=== PATIENT | female | born 1945 | race African-American/Black ===

== ENCOUNTER 2017-07-13 13:23 | Inpatient (IN) | payer MEDICARE, OTHER ==
[2017-07-13] MEDS ORDERED: Dextrose 5% in Water 1,000 ML IV PRN (18:06)
[2017-07-13] MEDS ORDERED: Dextrose 50% Abboject 50 ML SYRINGE SLOW IVP PRN (18:06)
[2017-07-13] MEDS ORDERED: Acetaminophen 500 MG TAB PO PRN (18:06)
[2017-07-13] MEDS: HYDROcodone/Acetaminophen 7.5/325 mg Tablet PO PRN (21:12)
[2017-07-13] MEDS: TROSPIUM 20 MG TABLET PO SCH (21:12)
[2017-07-13] MEDS: Potassium Chloride 20 MEQ TAB PO SCH (21:12)
[2017-07-13] MEDS: Gabapentin 300 MG CAP PO SCH (21:12)
[2017-07-13] MEDS: MISOPROSTOL PO SCH (21:15)
[2017-07-13] MEDS: DICLOFENAC SODIUM PO SCH (21:15)
--- NOTE | 2017-07-13 22:32 | HP ---
DATE OF ADMISSION: 07/14/2017 CHIEF COMPLAINT: Status post left total knee replacement for physical therapy. BRIEF HISTORY: This is a very pleasant 71-year-old -[place] female who underwent elective le ft total knee replacement. She has been transferred here for therapy. Her postoperative period was uneventful except for some high blood sugars, which resolved after she resumed back on her home medic ations. Currently, she states her pain is well controlled. She denies any fever or chills. She den ies any chest pain or shortness of breath. No family at bedside. PAST MEDICAL HISTORY: 1. Diabetes mellitus, type 2. 2. Hypertension. 3. Peripheral vascular disease. 4. Overactive bladder. 5. Cardiac arrhythmia. 6. Peripheral neuropathy and degenerative joint disease. 7. Dyslipidemia, not on statin due to intolerance. PAST SURGICAL HISTORY: 1. Hysterectomy. 2. section. 3. Peripheral vascular stent placement to left leg. ALLERGIES: STATINS. FAMILY HISTORY: Positive for coronary artery disease in her mother and diabetes in both her father a nd mother. PSYCHOSOCIAL HISTORY: She does smoke. She denies any alcohol abuse. She denies any recreational dr ug use. She is fairly active and independent. She really does not have anyone at home to help her. REVIEW OF SYSTEMS: Cardiovascular system: Denies any chest pain, shortness of breath, palpitations, paroxysmal nocturnal dyspnea, orthopnea, pedal edema. Respiratory System: Denies any chronic cough, expectoration, or pleuritic-type chest pain. Gastrointestinal system: Denies any nausea, vomiting, diarrhea, constipation, hematemesis, melena, hematochezia. Genitourinary system: Denies any freque ncy, urgency, dysuria, or hematuria. She does have some overactive bladder symptoms controlled with VESIcare. Central Nervous System: No focal numbness, weakness, or fainting spells. Musculoskeletal System: Arthritis pain mainly in her knees. HEENT: Denies any difficulty with speech, vision, hea ring, or swallowing. Skin: Denies any rash. PHYSICAL EXAMINATION: GENERAL: Very pleasant 71-year-old overweight -[place] female who is resting comfortably in no apparent distress. She responds appropriately to questions. She is alert, awake, and oriented x3 . VITAL SIGNS: She is afebrile, heart rate 67, respirations 20, oxygen saturation 98% on room air, blo od pressure 143/62. HEENT: Normocephalic, atraumatic. Pupils equal and reactive to light and accommodation. NECK: No JVD, thyromegaly, cervical adenopathy, throat exudates, or carotid bruits. CARDIOVASCULAR SYSTEM: S1, S2 plus rate and rhythm regular. RESPIRATORY SYSTEM: Normal vesicular breath sounds heard in all lung east. ABDOMEN: Soft, nontender, bowel sounds heard in all quadrants. EXTREMITIES: Without cyanosis or clubbing. Trace edema left leg. Peripheral pulses are palpable bu t decreased on the right. Left knee incision with dressing. No neurovascular compromise. CENTRAL NERVOUS SYSTEM: Grossly nonfocal. LABORATORY VALUES: Pending. Blood sugar is 197. IMPRESSION: 1. Degenerative joint disease, status post elective left total knee replacement. 2. Peripheral vascular disease, status post percutaneous transluminal coronary angioplasty, stent to left leg. 3. Diabetes mellitus, type 2. 4. Hypertension. 5. Dyslipidemia. 6. Cardiac arrhythmia. 7. Overactive bladder. PLAN: 1. Continue current medications. 2. An-1800 calorie Heart healthy ADA diet. 3. Accu-Cheks with sliding scale coverage. 4. DVT prophylaxis with PlexiPulses. 5. Stress ulcer prophylaxis. She is on Protonix. 6. Incision care. 7. PT, OT evaluate and treat. 8. Monitor heart rate and rhythm. 9. Routine laboratory values in the morning to check BMP, CBC. 10. Discussed with patient in detail. All questions answered. 11. No family at bedside. 12. Estimated length of stay 7-10 days.
[2017-07-14 05:19] LABS: #Basophils 0.1 thou/uL (0.0-0.2); #Eosinphils 0.2 thou/uL (0.0-0.7); #Lymphocytes 1.8 thou/uL (1.20-3.40); #Monocytes 0.8 thou/uL (0.11-0.59); #Neutrophils 5.7 thou/uL (1.40-6.50); %Basophils 0.7 % (0.0-1.0); %Lymphocytes 20.8 % (21.0-51.0); %Monocytes 9.6 % (0.0-10.0); %Neutrophils 66.9 % (42.0-75.0); Hemoglobin 8.1 g/dL (12.0-16.0); Mean Corpuscular HGB CONC 32.4 g/dL (32.0-36.0); Mean Corpuscular Hemoglobin 28.5 pg (27.0-31.0); Mean Corpuscular Volume 87.9 fl (81.0-99.0); Mean Platelet Volume 8.7 fL (7.4-10.4); Platelet Count 155 thou/uL (130-400); RBC Distribution Width 12.9 % (11.5-14.5); Red Blood Cell (RBC) Count 2.84 mill/uL (4.20-5.40); White Blood Cell (WBC) Count 8.5 thou/uL (4.8-10.8)
[2017-07-14 05:36] LABS: Anion Gap 11 mmol/L (10-20); BUN (Urea Nitrogen) 19 mg/dL (9.8-20.1); Calc. Creatinine Clearance 106 mL/min (70-130); Calcium 8.6 mg/dL (7.8-10.44); Carbon Dioxide 27 mmol/L (23-31); Chloride 108 mmol/L (98-107); Estimated GFR-MDRD 88; Glucose 165 mg/dL (83-110); Potassium 4.4 mmol/L (3.5-5.1); Sodium 142 mmol/L (136-145)
[2017-07-14] MEDS: Multivitamin W/ Minerals 1 TAB PO SCH (08:36)
[2017-07-14] MEDS: Furosemide 80 MG TAB PO SCH (08:36)
[2017-07-14] MEDS: Digoxin 0.125 MG TAB PO SCH (08:36)
[2017-07-14] MEDS: Fish Oil 1,000 MG CAP PO SCH (08:36)
[2017-07-14] MEDS: Aspirin 81 mg Enteric Coated Tablet PO SCH (08:36)
[2017-07-14] MEDS: TROSPIUM 20 MG TABLET PO SCH ×2 (08:36→21:22)
[2017-07-14] MEDS: Clopidogrel Bisulfate 75 MG TAB PO SCH (08:36)
[2017-07-14] MEDS: Gabapentin 300 MG CAP PO SCH ×2 (08:36→21:22)
[2017-07-14] MEDS: Potassium Chloride 20 MEQ TAB PO SCH ×2 (08:37→21:22)
[2017-07-14] MEDS: HYDROcodone/Acetaminophen 7.5/325 mg Tablet PO PRN ×2 (08:40→21:23)
[2017-07-14] MEDS: MISOPROSTOL PO SCH ×2 (10:21→21:21)
[2017-07-14] MEDS: (Empagliflozin [Jardiance] 10 MG) PO SCH (10:21)
[2017-07-14] MEDS: DICLOFENAC SODIUM PO SCH ×2 (10:21→21:21)
[2017-07-14] MEDS: HumaLOG 300 UNITS/3 ML VIAL SC PRN ×2 (12:10→16:28)
[2017-07-14] MEDS ORDERED: Valsartan 80 MG TAB PO SCH (22:30)
[2017-07-14] MEDS: Valsartan 80 MG TAB PO SCH (22:30)
[2017-07-15] MEDS: HumaLOG 300 UNITS/3 ML VIAL SC PRN ×3 (07:04→17:17)
[2017-07-15] MEDS: (Empagliflozin [Jardiance] 10 MG) PO SCH (09:28)
[2017-07-15] MEDS: DICLOFENAC SODIUM PO SCH ×2 (09:28→21:19)
[2017-07-15] MEDS: MISOPROSTOL PO SCH ×2 (09:28→21:19)
[2017-07-15] MEDS: TROSPIUM 20 MG TABLET PO SCH ×2 (09:29→21:20)
[2017-07-15] MEDS: Valsartan 80 MG TAB PO SCH (09:29)
[2017-07-15] MEDS: Fish Oil 1,000 MG CAP PO SCH (09:29)
[2017-07-15] MEDS: Digoxin 0.125 MG TAB PO SCH (09:29)
[2017-07-15] MEDS: Potassium Chloride 20 MEQ TAB PO SCH ×2 (09:29→21:20)
[2017-07-15] MEDS: Gabapentin 300 MG CAP PO SCH ×2 (09:30→21:20)
[2017-07-15] MEDS: HYDROcodone/Acetaminophen 7.5/325 mg Tablet PO PRN ×2 (09:30→18:46)
[2017-07-15] MEDS: Multivitamin W/ Minerals 1 TAB PO SCH (09:30)
[2017-07-15] MEDS: Aspirin 81 mg Enteric Coated Tablet PO SCH (09:30)
[2017-07-15] MEDS: Clopidogrel Bisulfate 75 MG TAB PO SCH (09:30)
[2017-07-15] MEDS: Furosemide 80 MG TAB PO SCH (09:30)
[2017-07-15] MEDS: Bisacodyl 5 MG TAB PO SCH (21:20)
--- NOTE | 2017-07-15 23:02 | PRG ---
DATE OF SERVICE: 07/15/2017 HISTORY OF PRESENT ILLNESS: Ms. Sandoval is a very pleasant, well-developed, well-nourished 71-year- old black female that had an elective total left knee done. This was done by Dr. Silvestre Bergeron. P ostoperatively, she had a few sugars out of control, but she was transferred to [facility] for physical therapy and occupational therapy to manage her diabetes. SUBJECTIVE: The patient states she had a good day today. She has no complaints, but she is not sure why her sugars are a little bit elevated. PHYSICAL EXAMINATION: VITAL SIGNS: Reveal blood pressure this morning 119/51, pulse 59-69, respirations 16-20, O2 sat 96%- 98% on room air, T-max 98.1. GENERAL: This is a well-developed, well-nourished, slightly obese black female in no apparent distre ss at this time. HEENT: Reveals normocephalic, nontraumatic cranium. Pupils are equally round and reactive. Extraoc ular muscles are intact. Nose and throat are slightly dry. NECK: Supple, without mass, nodes, or bruits. LUNGS: Chest is clear to auscultation. No rales, no rhonchi, no wheezes are heard. No cough was no mark. HEART: Reveals a regular rate and rhythm without murmurs, gallops, or rubs. ABDOMEN: Obese, soft, nontender, without organomegaly. Normal bowel sounds are noted in all 4 quadr ants. No rebound or guarding is noted. EXAM: Deferred. EXTREMITIES: Reveal trace edema, left leg. Bandage over the left knee is not oozing or draining. NEUROLOGIC: The patient is grossly nonfocal. LABORATORY DATA: Labs yesterday morning reveal white count 8500 with hemoglobin 8.1, hematocrit 24.9 , platelet count 155,000. Chemistries, sodium is 142, potassium 4.4, chloride 108, carbon dioxide 27 with a creatinine 0.78. GFR is 88. Fasting blood sugar this morning was 79, before lunch 227, before supper 256, before bedtime 187. IMPRESSION: 1. Total left knee, status post elective replacement. 2. Degenerative joint disease. 3. Peripheral vascular disease. 4. Post-PTCA stent to the left leg. 5. Diabetes type 2, slightly elevated. 6. Hypertension. 7. Hyperlipidemia. 8. Cardiac arrhythmia. 9. Overactive bladder. 10. Generalized weakness. PLAN: 1. Continue to encourage the patient to stay on a healthy heart, 1800-calorie ADA diet. 2. Accu-Cheks a.c. and at bedtime. 3. Deep venous thrombosis prophylaxis with PlexiPulses. 4. Stress ulcer prophylaxis. 5. Decubitus precautions. 6. Physical therapy and occupational therapy. 7. Monitor the patient's rate. 8. Continue physical therapy and occupational therapy.
[2017-07-16] MEDS: HumaLOG 300 UNITS/3 ML VIAL SC PRN ×3 (06:39→20:45)
[2017-07-16] MEDS: Multivitamin W/ Minerals 1 TAB PO SCH (08:52)
[2017-07-16] MEDS: Bisacodyl 5 MG TAB PO SCH ×2 (08:52→20:46)
[2017-07-16] MEDS: Clopidogrel Bisulfate 75 MG TAB PO SCH (08:52)
[2017-07-16] MEDS: TROSPIUM 20 MG TABLET PO SCH ×2 (08:52→20:46)
[2017-07-16] MEDS: Valsartan 80 MG TAB PO SCH (08:52)
[2017-07-16] MEDS: Fish Oil 1,000 MG CAP PO SCH (08:52)
[2017-07-16] MEDS: Furosemide 80 MG TAB PO SCH (08:53)
[2017-07-16] MEDS: Gabapentin 300 MG CAP PO SCH ×2 (08:53→20:46)
[2017-07-16] MEDS: Potassium Chloride 20 MEQ TAB PO SCH ×2 (08:53→20:46)
[2017-07-16] MEDS: Aspirin 81 mg Enteric Coated Tablet PO SCH (08:53)
[2017-07-16] MEDS: Digoxin 0.125 MG TAB PO SCH (08:53)
[2017-07-16] MEDS: DICLOFENAC SODIUM PO SCH ×2 (08:58→20:47)
[2017-07-16] MEDS: MISOPROSTOL PO SCH ×2 (08:58→20:47)
[2017-07-16] MEDS: (Empagliflozin [Jardiance] 10 MG) PO SCH (08:58)
[2017-07-16] MEDS: HYDROcodone/Acetaminophen 7.5/325 mg Tablet PO PRN ×2 (09:23→16:20)
[2017-07-16 18:44] VITALS: BMI 34.4
--- NOTE | 2017-07-16 21:08 | PRG ---
DATE OF SERVICE: 07/16/2017 HISTORY OF PRESENT ILLNESS: Ms. Sandvoal is a very pleasant 71-year-old black female that has an tasha ctive total knee done by Dr. Silvestre Bergeron. Postoperatively, she had her sugars a little bit out o f control and eventually she was transferred to [facility] for physical therapy, occu pational therapy in the management of her diabetes. SUBJECTIVE: The patient states she had a fairly good day and had lots of visitors since it is Mother 's Day. She is worried about her sugars being 180s and up to 267. We removed her from this mild sli ding scale to a moderate sliding scale. At this time, we will see how that does with her sugars. OBJECTIVE: VITAL SIGNS: This morning reveal blood pressure 132/61, pulse 64-68, respirations 16-20, O2 sat 97-9 8% on room air, T-max 98.0. GENERAL: This is a well-developed, well-nourished, slightly obese black female in no apparent distre ss at this time. HEENT: Reveals normocephalic, nontraumatic cranium. Pupils equal, round, and reactive. Extraocular movements intact. Nose and throat are slightly dry. NECK: Supple, without mass, nodes or bruits. CHEST: Clear to auscultation. No rales, rhonchi, wheezes or cough is heard. CARDIOVASCULAR: Reveals a regular rate and rhythm without murmurs, gallops or rubs. ABDOMEN: Obese, soft, nontender, without organomegaly, normal bowel sounds are noted in all 4 quadra nts. No rebound or guarding is noted. : Deferred. EXTREMITIES: Revealed trace edema in the left leg, bandage over left knee is not oozing, is nice and dry. NEUROLOGIC: The patient is nonfocal. LABORATORY DATA: Sugar this morning reveals fasting 184, before lunch 267, before supper 205. Sugars yesterday, fasting was 179, before lunch 227, before supper 256, before bedtime 187. I have increased her sliding scale insulin from a mild sliding scale to a moderate sliding scale. IMPRESSION: 1. Total left knee status post elective replacement. 2. Degenerative joint disease. 3. Diabetes type 2 with slightly elevated sugars. 4. Peripheral vascular disease. 5. Status post PTCA stent to the left leg. 6. Hypertension. 7. Hyperlipidemia. 8. History of cardiac arrhythmia. 9. Overactive bladder. 10. Generalized weakness. PLAN: 1. Increase the patient's sliding scale from mild to moderate. 2. Encourage the patient to continue to stay on a healthy heart, 1800 calorie ADA diet. 3. Accu-Cheks a.c. and at bedtime. 4. DVT prophylaxis with PlexiPulses. 5. Stress ulcer prophylaxis. 6. Decubitus precautions. 7. Continue physical therapy and occupational therapy.
[2017-07-17] MEDS: HYDROcodone/Acetaminophen 7.5/325 mg Tablet PO PRN ×2 (05:53→17:27)
[2017-07-17] MEDS: (Empagliflozin [Jardiance] 10 MG) PO SCH (08:13)
[2017-07-17] MEDS: Multivitamin W/ Minerals 1 TAB PO SCH (08:14)
[2017-07-17] MEDS: Potassium Chloride 20 MEQ TAB PO SCH ×2 (08:15→21:19)
[2017-07-17] MEDS: Clopidogrel Bisulfate 75 MG TAB PO SCH (08:15)
[2017-07-17] MEDS: Gabapentin 300 MG CAP PO SCH ×2 (08:16→21:19)
[2017-07-17] MEDS: Digoxin 0.125 MG TAB PO SCH (08:16)
[2017-07-17] MEDS: Furosemide 80 MG TAB PO SCH (08:17)
[2017-07-17] MEDS: Aspirin 81 mg Enteric Coated Tablet PO SCH (08:17)
[2017-07-17] MEDS: Valsartan 80 MG TAB PO SCH ×2 (08:18→08:20)
[2017-07-17] MEDS: Fish Oil 1,000 MG CAP PO SCH (08:18)
[2017-07-17] MEDS: DICLOFENAC SODIUM PO SCH ×2 (08:20→21:18)
[2017-07-17] MEDS: MISOPROSTOL PO SCH ×2 (08:20→21:18)
[2017-07-17] MEDS: Bisacodyl 5 MG TAB PO SCH ×2 (08:21→21:18)
[2017-07-17] MEDS: TROSPIUM 20 MG TABLET PO SCH ×2 (09:37→21:18)
[2017-07-17] MEDS: HumaLOG 300 UNITS/3 ML VIAL SC PRN ×3 (11:39→21:21)
[2017-07-17] MEDS ORDERED: Bisacodyl 10 MG SUPP PR PRN (13:17)
--- NOTE | 2017-07-17 14:33 | PRG ---
DATE OF SERVICE: 07/17/2017 SUBJECTIVE: Ms. Sandoval is doing well except for constipation and she is concerned about her blood sugar. She is currently just taking Jardiance. She apparently has been refusing some of her sliding scale. I advised her that I will get her back on her metformin and if necessary can increase the Ja rdiance to 25 mg. I also advised her that I will get her on some Dulcolax suppository and milk of ma gnesia as needed. OBJECTIVE: VITAL SIGNS: She is afebrile, heart rate 63, respirations 16, oxygen saturation 96% on room air, blo od pressure 119/54. CARDIOVASCULAR: S1, S2 plus. RESPIRATORY: Normal vesicular breath sounds. ABDOMEN: Soft, nontender, bowel sounds heard in all quadrants. EXTREMITIES: Without cyanosis or clubbing. Left knee incision with dressing. LABORATORY VALUES: Blood sugars have been 330, 205, 196, 179, 227, 256, 187, 184, 267 and 198. IMPRESSION: 1. Status post left total knee replacement. 2. Diabetes mellitus type 2, not well controlled. 3. Hypertension. 4. Peripheral vascular disease. 5. Overactive bladder. 6. Dyslipidemia. 7. Peripheral neuropathy. PLAN: 1. Add metformin 500 mg p.o. b.i.d. 2. Milk of magnesia 30 mL p.o. daily as needed. 3. Dulcolax suppository b.i.d. p.r.n. 4. Continue 1800 calorie heart healthy ADA diet. 5. Accu-Cheks with surgical coverage. 6. Deep venous thrombosis and stress ulcer prophylaxis. 7. Incision care. 8. Routine laboratory values, check glycohemoglobin. 9. Discussed with patient in detail and all questions answered.
[2017-07-17] MEDS: Milk Of Magnesia 30 ML UDCUP PO PRN (16:28)
[2017-07-17] MEDS: metFORMIN 500 MG TAB PO SCH (16:35)
[2017-07-18] MEDS: HYDROcodone/Acetaminophen 7.5/325 mg Tablet PO PRN ×3 (03:45→21:08)
[2017-07-18 05:21] LABS: #Basophils 0.1 thou/uL (0.0-0.2); #Eosinphils 0.2 thou/uL (0.0-0.7); #Lymphocytes 1.9 thou/uL (1.20-3.40); #Monocytes 0.9 thou/uL (0.11-0.59); #Neutrophils 4.1 thou/uL (1.40-6.50); %Basophils 1.3 % (0.0-1.0); %Lymphocytes 25.9 % (21.0-51.0); %Monocytes 12.6 % (0.0-10.0); %Neutrophils 57.2 % (42.0-75.0); Hemoglobin 8.4 g/dL (12.0-16.0); Mean Corpuscular HGB CONC 31.7 g/dL (32.0-36.0); Mean Corpuscular Hemoglobin 28.1 pg (27.0-31.0); Mean Corpuscular Volume 88.6 fl (81.0-99.0); Mean Platelet Volume 7.9 fL (7.4-10.4); Platelet Count 262 thou/uL (130-400); RBC Distribution Width 13.5 % (11.5-14.5); Red Blood Cell (RBC) Count 2.97 mill/uL (4.20-5.40); White Blood Cell (WBC) Count 7.2 thou/uL (4.8-10.8)
[2017-07-18 05:38] LABS: Anion Gap 11 mmol/L (10-20); BUN (Urea Nitrogen) 15 mg/dL (9.8-20.1); Calc. Creatinine Clearance 106 mL/min (70-130); Calcium 8.7 mg/dL (7.8-10.44); Carbon Dioxide 27 mmol/L (23-31); Chloride 106 mmol/L (98-107); Estimated GFR-MDRD 81; Glucose 172 mg/dL (83-110); Potassium 4.4 mmol/L (3.5-5.1); Sodium 140 mmol/L (136-145)
[2017-07-18] MEDS: HumaLOG 300 UNITS/3 ML VIAL SC PRN ×2 (06:18→12:25)
[2017-07-18] MEDS: Aspirin 81 mg Enteric Coated Tablet PO SCH (08:55)
[2017-07-18] MEDS: Fish Oil 1,000 MG CAP PO SCH (08:57)
[2017-07-18] MEDS: Potassium Chloride 20 MEQ TAB PO SCH ×2 (08:57→21:08)
[2017-07-18] MEDS: Furosemide 80 MG TAB PO SCH (08:58)
[2017-07-18] MEDS: Multivitamin W/ Minerals 1 TAB PO SCH (08:59)
[2017-07-18] MEDS: Clopidogrel Bisulfate 75 MG TAB PO SCH (08:59)
[2017-07-18] MEDS: TROSPIUM 20 MG TABLET PO SCH ×2 (09:00→21:08)
[2017-07-18] MEDS: Digoxin 0.125 MG TAB PO SCH (09:02)
[2017-07-18] MEDS: (Empagliflozin [Jardiance] 10 MG) PO SCH (09:04)
[2017-07-18] MEDS: DICLOFENAC SODIUM PO SCH ×2 (09:04→21:07)
[2017-07-18] MEDS: MISOPROSTOL PO SCH ×2 (09:04→21:07)
[2017-07-18] MEDS: Gabapentin 300 MG CAP PO SCH ×2 (09:06→21:10)
[2017-07-18] MEDS: Bisacodyl 5 MG TAB PO SCH ×2 (09:08→21:10)
[2017-07-18] MEDS: metFORMIN 500 MG TAB PO SCH (09:09)
[2017-07-18] MEDS: Valsartan 80 MG TAB PO SCH (09:57)
[2017-07-18 11:48] LABS: Hemoglobin A1c 7.5 % (4.0-6.0)
--- NOTE | 2017-07-18 13:56 | PRG ---
DATE OF SERVICE: 07/18/2017 SUBJECTIVE: Ms. Sandoval is doing well. Denies any complaints, concerned about her blood sugar, but she did not want to take her metformin. Her blood sugars are mostly in the high 100s, occasionally in the low 200s. She apparently was on Actos in the past and that was discontinued due to leg swelli ng. She was on metformin about a year ago and at that time she had some renal insufficiency, so that was discontinued. I advised her that currently her renal functions are normal. She states that she would like to try glyburide, which is what Dr. Cruz was supposed to start her on. I had a phone call from Dr. Cruz and when I called him, I had to leave a voicemail. The plan is to stop the m etformin and start her on glyburide 2.5 mg with her evening meal. She will continue to take in the J ardiance with her morning meal. She understands the rationale behind it. OBJECTIVE: VITAL SIGNS: She is afebrile, heart rate 61, respirations 16, oxygen saturation 99% on room air, and blood pressure 116/59. CARDIOVASCULAR: S1 and S2 plus. RESPIRATORY: Normal vesicular breath sounds. ABDOMEN: Soft, nontender, bowel sounds heard in all quadrants. EXTREMITIES: Without cyanosis or clubbing. Left knee incision with dressing. LABORATORY VALUES: White count is 7.2, H&H is 8.4 and 26.3. Sodium 140, potassium 4.4, BUN and crea tinine is 15 and 0.84. Blood sugars are 172, 212, and 197. Her glycohemoglobin is 7.5. IMPRESSION: 1. Degenerative joint disease status post left total knee replacement. 2. Diabetes mellitus type 2. 3. Hypertension. 4. Peripheral vascular disease. 5. Dyslipidemia. 6. Overactive bladder. PLAN: 1. Discontinue metformin, per patient request and start her on glyburide 2.5 mg with her evening karel l. 2. An 1800 calorie Heart-healthy ADA diet. 3. Continue to monitor blood sugars. 4. DVT and stress ulcer prophylaxis. 5. Decubitus precautions. 6. Incision care. 7. Routine laboratory values. 8. Physical therapy. 9. Discussed with patient in detail. All questions answered. 10. No family at bedside.
[2017-07-18] MEDS: Glimepiride 2 MG TAB PO SCH (16:43)
[2017-07-18] MEDS ORDERED: glyBURIDE 2.5 MG TAB PO SCH (17:00)
[2017-07-19] MEDS: Bisacodyl 5 MG TAB PO SCH ×2 (09:29→21:32)
[2017-07-19] MEDS: Valsartan 80 MG TAB PO SCH (09:29)
[2017-07-19] MEDS: Digoxin 0.125 MG TAB PO SCH (09:30)
[2017-07-19] MEDS: Fish Oil 1,000 MG CAP PO SCH (09:30)
[2017-07-19] MEDS: Potassium Chloride 20 MEQ TAB PO SCH ×2 (09:30→21:32)
[2017-07-19] MEDS: Multivitamin W/ Minerals 1 TAB PO SCH (09:30)
[2017-07-19] MEDS: Aspirin 81 mg Enteric Coated Tablet PO SCH (09:31)
[2017-07-19] MEDS: Gabapentin 300 MG CAP PO SCH ×2 (09:31→21:32)
[2017-07-19] MEDS: Clopidogrel Bisulfate 75 MG TAB PO SCH (09:32)
[2017-07-19] MEDS: Furosemide 80 MG TAB PO SCH (09:32)
[2017-07-19] MEDS: TROSPIUM 20 MG TABLET PO SCH ×2 (09:33→21:32)
[2017-07-19] MEDS: (Empagliflozin [Jardiance] 10 MG) PO SCH (09:36)
[2017-07-19] MEDS: MISOPROSTOL PO SCH (09:36)
[2017-07-19] MEDS: DICLOFENAC SODIUM PO SCH (09:36)
[2017-07-19] MEDS: HumaLOG 300 UNITS/3 ML VIAL SC PRN (13:07)
[2017-07-19] MEDS: HYDROcodone/Acetaminophen 7.5/325 mg Tablet PO PRN (13:56)
--- NOTE | 2017-07-19 13:57 | PRG ---
DATE OF SERVICE: 07/19/2017 SUBJECTIVE: Ms. Sandoval is doing well. Denies any complaints, ambulating in the hallways with the help of a walker and therapy, has a knee brace on. Blood sugars are mostly in the 100s with the jonn tion of glimepiride 2 mg yesterday. We will continue to monitor it for a day or two before increasin g the dose. No family at bedside. OBJECTIVE: VITAL SIGNS: She is afebrile, heart rate 65, respirations 18, oxygen saturation 96% on room air, blo od pressure 134/65. CARDIOVASCULAR: S1, S2 plus. RESPIRATORY: Normal vesicular breath sounds. ABDOMEN: Soft, nontender, bowel sounds heard in all quadrants. EXTREMITIES: Without cyanosis or clubbing. Left knee incision with dressing. LABORATORY VALUES: Blood sugars are 197, 168, 181, 154, and 235. IMPRESSION: 1. Diabetes mellitus type 2, improving controlled. 2. Hypertension. 3. Degenerative joint disease. 4. Dyslipidemia. 5. Peripheral vascular disease. 6. Overactive bladder. PLAN: 1. Continue current medications. 2. Monitor blood sugars. 3. 1800 calorie Heart healthy ADA diet. 4. Incision care. 5. Physical therapy. 6. DVT and stress ulcer prophylaxis. 7. Discussed with patient in detail. All questions answered.
[2017-07-19] MEDS: Glimepiride 2 MG TAB PO SCH (18:12)
[2017-07-19] MEDS: Misoprostol 100 MCG TAB PO SCH (21:33)
[2017-07-19] MEDS: DICLOFENAC 75 MG PO SCH (21:46)
[2017-07-20] MEDS: Aspirin 81 mg Enteric Coated Tablet PO SCH (08:33)
[2017-07-20] MEDS: TROSPIUM 20 MG TABLET PO SCH ×2 (08:33→20:16)
[2017-07-20] MEDS: Digoxin 0.125 MG TAB PO SCH (08:34)
[2017-07-20] MEDS: Multivitamin W/ Minerals 1 TAB PO SCH (08:34)
[2017-07-20] MEDS: Fish Oil 1,000 MG CAP PO SCH (08:34)
[2017-07-20] MEDS: Potassium Chloride 20 MEQ TAB PO SCH ×2 (08:34→20:16)
[2017-07-20] MEDS: Clopidogrel Bisulfate 75 MG TAB PO SCH (08:34)
[2017-07-20] MEDS: Gabapentin 300 MG CAP PO SCH ×2 (08:34→20:16)
[2017-07-20] MEDS: Valsartan 80 MG TAB PO SCH (08:35)
[2017-07-20] MEDS: Bisacodyl 5 MG TAB PO SCH ×2 (08:35→20:13)
[2017-07-20] MEDS: Furosemide 80 MG TAB PO SCH (08:36)
[2017-07-20] MEDS: (Empagliflozin [Jardiance] 10 MG) PO SCH (08:36)
[2017-07-20] MEDS: Misoprostol 100 MCG TAB PO SCH ×3 (09:38→18:11)
[2017-07-20] MEDS: DICLOFENAC 75 MG PO SCH ×2 (09:38→09:42)
[2017-07-20] MEDS: HYDROcodone/Acetaminophen 7.5/325 mg Tablet PO PRN (13:23)
--- NOTE | 2017-07-20 14:36 | PRG ---
DATE OF SERVICE: 07/20/2017 SUBJECTIVE: Ms. Sandoval is doing well. Denies any complaints. Tolerating her therapy. Blood suga rs continuing to remain in the high 100s. She is agreeable to increase the glimepiride to 4 mg. Dis cussed with therapy and no concerns. OBJECTIVE: VITAL SIGNS: She is afebrile, heart rate is 62, respirations 19, oxygen saturation 95% on room air. CARDIOVASCULAR: S1, S2 plus. RESPIRATORY: Clear breath sounds. ABDOMEN: Soft, nontender. Bowel sounds heard in all quadrants. EXTREMITIES: Without cyanosis or clubbing. She is ambulating with the help of a knee immobilizer wi th a knee brace. IMPRESSION: 1. Status post left total knee replacement. 2. Diabetes mellitus type 2, improving control. 3. Hypertension. 4. Dyslipidemia. 5. Peripheral vascular disease. PLAN: 1. Increase glimepiride to 4 mg every night with dinner. 2. Physical therapy. 3. Nutritional support. 4. Incision care. 5. 1800-calorie heart healthy ADA diet. 6. DVT and stress ulcer prophylaxis. 7. Decubitus precautions.
[2017-07-20] MEDS: Glimepiride 2 MG TAB PO SCH (16:44)
[2017-07-20] MEDS: HumaLOG 300 UNITS/3 ML VIAL SC PRN (16:45)
[2017-07-21] MEDS: HYDROcodone/Acetaminophen 7.5/325 mg Tablet PO PRN ×2 (08:39→12:59)
[2017-07-21] MEDS: TROSPIUM 20 MG TABLET PO SCH ×2 (08:40→20:34)
[2017-07-21] MEDS: Valsartan 80 MG TAB PO SCH (08:40)
[2017-07-21] MEDS: EMPAGLIFLOZIN 10 MG PO SCH (08:40)
[2017-07-21] MEDS: Digoxin 0.125 MG TAB PO SCH (08:41)
[2017-07-21] MEDS: Fish Oil 1,000 MG CAP PO SCH (08:41)
[2017-07-21] MEDS: Clopidogrel Bisulfate 75 MG TAB PO SCH (08:41)
[2017-07-21] MEDS: Potassium Chloride 20 MEQ TAB PO SCH ×2 (08:41→20:35)
[2017-07-21] MEDS: Multivitamin W/ Minerals 1 TAB PO SCH (08:41)
[2017-07-21] MEDS: Bisacodyl 5 MG TAB PO SCH ×2 (08:41→20:33)
[2017-07-21] MEDS: Gabapentin 300 MG CAP PO SCH ×2 (08:41→20:35)
[2017-07-21] MEDS: Furosemide 80 MG TAB PO SCH (08:41)
[2017-07-21] MEDS: Misoprostol 100 MCG TAB PO SCH ×2 (08:42→18:21)
[2017-07-21] MEDS: Aspirin 81 mg Enteric Coated Tablet PO SCH (08:42)
[2017-07-21] MEDS: DICLOFENAC 75 MG PO SCH ×2 (08:43→18:21)
[2017-07-21] MEDS: HumaLOG 300 UNITS/3 ML VIAL SC PRN (11:39)
[2017-07-21] MEDS: Glimepiride 2 MG TAB PO SCH (17:46)
[2017-07-22] MEDS: TROSPIUM 20 MG TABLET PO SCH ×2 (09:09→20:55)
[2017-07-22] MEDS: Valsartan 80 MG TAB PO SCH (09:09)
[2017-07-22] MEDS: Potassium Chloride 20 MEQ TAB PO SCH ×2 (09:09→20:55)
[2017-07-22] MEDS: Misoprostol 100 MCG TAB PO SCH ×2 (09:09→18:00)
[2017-07-22] MEDS: Fish Oil 1,000 MG CAP PO SCH (09:09)
[2017-07-22] MEDS: Furosemide 80 MG TAB PO SCH (09:09)
[2017-07-22] MEDS: Gabapentin 300 MG CAP PO SCH ×2 (09:10→20:56)
[2017-07-22] MEDS: Digoxin 0.125 MG TAB PO SCH (09:10)
[2017-07-22] MEDS: Aspirin 81 mg Enteric Coated Tablet PO SCH (09:10)
[2017-07-22] MEDS: Bisacodyl 5 MG TAB PO SCH ×2 (09:10→20:54)
[2017-07-22] MEDS: Clopidogrel Bisulfate 75 MG TAB PO SCH (09:10)
[2017-07-22] MEDS: Multivitamin W/ Minerals 1 TAB PO SCH (09:10)
[2017-07-22] MEDS: EMPAGLIFLOZIN 10 MG PO SCH (09:11)
[2017-07-22] MEDS: DICLOFENAC 75 MG PO SCH ×2 (09:12→18:13)
[2017-07-22] MEDS: HYDROcodone/Acetaminophen 7.5/325 mg Tablet PO PRN ×2 (11:29→18:03)
[2017-07-22] MEDS: Glimepiride 2 MG TAB PO SCH (17:59)
--- NOTE | 2017-07-22 20:19 | PRG ---
DATE OF SERVICE: 07/22/2017 SUBJECTIVE: The patient lying in bed, feels well, status post left total knee with ability to walk, but still not able to flex her knee secondary to tendon injury in addition to the total knee replacem ent, having no chest pain or shortness of breath and good blood pressure control. OBJECTIVE: VITAL SIGNS: Accu-Cheks show range from 119 from 116-178. Vital signs show blood pressure 123/58, t emperature 98, pulse 61, and respirations 20. LUNGS: Clear. CARDIAC: Shows regular rhythm. ABDOMEN: Soft and nontender. EXTREMITIES: Left knee is healing well with ability to flex 45 degrees and extend 180 degrees. No s welling, warmth, or tenderness. ASSESSMENT: 1. Resolving left total knee with follow up with orthopedic surgeon 2 days. 2. Type 2 diabetes with improving control. 3. Hypertension, controlled to goal. 4. Peripheral vascular disease, stable. PLAN: 1. Continue glimepiride 4 mg at night. 2. Continue PT, OT. 3. Continue ADA diet 4. Continue DVT and stress ulcer prophylaxis.
[2017-07-23] MEDS: HYDROcodone/Acetaminophen 7.5/325 mg Tablet PO PRN ×2 (00:08→08:56)
[2017-07-23] MEDS: TROSPIUM 20 MG TABLET PO SCH ×2 (08:45→21:06)
[2017-07-23] MEDS: Clopidogrel Bisulfate 75 MG TAB PO SCH (08:45)
[2017-07-23] MEDS: Misoprostol 100 MCG TAB PO SCH ×2 (08:45→18:07)
[2017-07-23] MEDS: Furosemide 80 MG TAB PO SCH (08:45)
[2017-07-23] MEDS: Valsartan 80 MG TAB PO SCH (08:45)
[2017-07-23] MEDS: Digoxin 0.125 MG TAB PO SCH (08:46)
[2017-07-23] MEDS: Multivitamin W/ Minerals 1 TAB PO SCH (08:46)
[2017-07-23] MEDS: Aspirin 81 mg Enteric Coated Tablet PO SCH (08:46)
[2017-07-23] MEDS: Gabapentin 300 MG CAP PO SCH ×2 (08:46→21:06)
[2017-07-23] MEDS: Potassium Chloride 20 MEQ TAB PO SCH ×2 (08:46→21:06)
[2017-07-23] MEDS: DICLOFENAC 75 MG PO SCH ×2 (08:48→18:19)
[2017-07-23] MEDS: EMPAGLIFLOZIN 10 MG PO SCH (08:49)
[2017-07-23] MEDS: Fish Oil 1,000 MG CAP PO SCH (10:27)
[2017-07-23] MEDS: Bisacodyl 5 MG TAB PO SCH ×2 (10:27→21:06)
--- NOTE | 2017-07-23 16:43 | PRG ---
DATE OF SERVICE: 07/23/2017 SUBJECTIVE: Patient complains of increased pain in her left calf and knee and popliteal area and now has been up and about today. She is not having any pre-swelling or erythema or warmth, fever or chi lls or shortness of breath. OBJECTIVE: VITAL SIGNS: Shows blood pressure is 149/64, temperature is 97, pulse 56, respirations 20. Accu-Felipa ks stable 132-180. LUNGS: Clear. CARDIAC: Shows regular rhythm. ABDOMEN: Soft, nontender. EXTREMITIES: Left knee shows healing anterior knee replacement incision with no erythema or warmth. ASSESSMENT: 1. Resolving left total knee with some mild increased pain today and will see orthopedic surgeon simnoe orrow. 2. Type 2 diabetes with fair control. 3. Hypertension, controlled to goal. 4. Peripheral vascular disease, stable. PLAN: Continue glimepiride 4 mg at night. Follow up with orthopedic surgeon tomorrow. Continue PT, OT and continue ADA diet. Continue stress ulcer and DVT prophylaxis.
[2017-07-23] MEDS: Glimepiride 2 MG TAB PO SCH (18:06)
[2017-07-24] MEDS: HYDROcodone/Acetaminophen 7.5/325 mg Tablet PO PRN ×3 (05:47→20:41)
[2017-07-24] MEDS: Furosemide 80 MG TAB PO SCH (08:26)
[2017-07-24] MEDS: Bisacodyl 5 MG TAB PO SCH (08:26)
[2017-07-24] MEDS: TROSPIUM 20 MG TABLET PO SCH ×2 (08:31→20:41)
[2017-07-24] MEDS: Multivitamin W/ Minerals 1 TAB PO SCH (08:31)
[2017-07-24] MEDS: Digoxin 0.125 MG TAB PO SCH (08:31)
[2017-07-24] MEDS: Misoprostol 100 MCG TAB PO SCH ×2 (08:31→17:00)
[2017-07-24] MEDS: Clopidogrel Bisulfate 75 MG TAB PO SCH (08:31)
[2017-07-24] MEDS: Valsartan 80 MG TAB PO SCH (08:32)
[2017-07-24] MEDS: Potassium Chloride 20 MEQ TAB PO SCH ×2 (08:32→20:41)
[2017-07-24] MEDS: Gabapentin 300 MG CAP PO SCH ×2 (08:32→20:41)
[2017-07-24] MEDS: Aspirin 81 mg Enteric Coated Tablet PO SCH (08:32)
[2017-07-24] MEDS: DICLOFENAC 75 MG PO SCH ×2 (08:34→16:59)
[2017-07-24] MEDS: EMPAGLIFLOZIN 10 MG PO SCH (08:34)
[2017-07-24] MEDS: Fish Oil 1,000 MG CAP PO SCH (08:40)
--- NOTE | 2017-07-24 12:59 | PRG ---
DATE OF SERVICE: 07/24/2017 SUBJECTIVE: Ms. Sandoval just came back from her visit with her orthopedic surgeon. Her lee wer e removed. She is doing well. Denies any complaints, tolerating her medication. She is happy with how her blood sugars are coming along. OBJECTIVE: VITAL SIGNS: She is afebrile, heart rate 54, respirations 17, oxygen saturation 95% on room air, blo od pressure 146/62. CARDIOVASCULAR SYSTEM: S1, S2 plus. RESPIRATORY SYSTEM: Normal vesicular breath sounds. ABDOMEN: Soft, nontender, bowel sounds heard in all quadrants. EXTREMITIES: Without cyanosis or clubbing. Left knee incision is healthy. CENTRAL NERVOUS SYSTEM: Improving deconditioning. LABORATORY VALUES: Blood sugars are 149, 165, 164, 160 and 147. IMPRESSION: 1. Diabetes mellitus type 2. 2. Hypertension, well controlled. 3. Dyslipidemia. 4. Peripheral vascular disease. 5. Degenerative joint disease, status post left total knee replacement. PLAN: 1. Continue current medications. 2. Nutritional support. 3. DVT and stress ulcer prophylaxis. 4. Decubitus precautions. 5. Routine laboratory values. 6. Incision care. 7. 1800-calorie Heart healthy ADA diet. 8. Continue physical therapy. 9. Discussed with patient in detail. All questions answered.
[2017-07-24] MEDS: Glimepiride 2 MG TAB PO SCH (16:59)
[2017-07-24] MEDS: Milk Of Magnesia 30 ML UDCUP PO PRN (20:42)
[2017-07-25] MEDS: Bisacodyl 5 MG TAB PO SCH ×3 (05:57→20:47)
[2017-07-25] MEDS: Valsartan 80 MG TAB PO SCH (09:26)
[2017-07-25] MEDS: Fish Oil 1,000 MG CAP PO SCH (09:26)
[2017-07-25] MEDS: Gabapentin 300 MG CAP PO SCH ×2 (09:26→20:46)
[2017-07-25] MEDS: TROSPIUM 20 MG TABLET PO SCH ×2 (09:26→20:45)
[2017-07-25] MEDS: Potassium Chloride 20 MEQ TAB PO SCH ×2 (09:26→20:46)
[2017-07-25] MEDS: Digoxin 0.125 MG TAB PO SCH (09:26)
[2017-07-25] MEDS: HYDROcodone/Acetaminophen 7.5/325 mg Tablet PO PRN ×3 (09:27→20:45)
[2017-07-25] MEDS: Multivitamin W/ Minerals 1 TAB PO SCH (09:27)
[2017-07-25] MEDS: Aspirin 81 mg Enteric Coated Tablet PO SCH (09:27)
[2017-07-25] MEDS: Furosemide 80 MG TAB PO SCH (09:27)
[2017-07-25] MEDS: Misoprostol 100 MCG TAB PO SCH ×2 (09:27→17:35)
[2017-07-25] MEDS: Clopidogrel Bisulfate 75 MG TAB PO SCH (09:27)
[2017-07-25] MEDS: DICLOFENAC 75 MG PO SCH ×2 (09:28→17:35)
[2017-07-25] MEDS: EMPAGLIFLOZIN 10 MG PO SCH (09:28)
--- NOTE | 2017-07-25 09:56 | PRG ---
DATE OF SERVICE: 07/25/2017 SUBJECTIVE: Ms. Sandoval is doing well. Denies any complaints, resting comfortably. She is happy w ith her blood sugar. She is working on increasing the flexion in her left knee. No fever or chills. No chest pain or shortness of breath. No family at bedside. OBJECTIVE: VITAL SIGNS: She is afebrile, heart rate 55, respirations 17, oxygen saturation 97% on room air, blo od pressure 115/56. CARDIOVASCULAR SYSTEM: S1, S2 plus. RESPIRATORY SYSTEM: Normal vascular breath sounds. ABDOMEN: Soft, nontender, bowel sounds heard in all quadrants. EXTREMITIES: Without cyanosis or clubbing. Left knee incision is healthy. LABORATORY DATA: Blood sugars are 147, 147, 188, and 118. IMPRESSION: 1. Diabetes mellitus type 2, well controlled. 2. Hypertension, well controlled. 3. Dyslipidemia. 4. Peripheral vascular disease. 5. Degenerative joint disease, status post left total knee replacement. PLAN: 1. Continue current medications. 2. A 1800 calorie Heart healthy ADA diet. 3. Accu-Cheks with sliding scale coverage. 4. Deep venous thrombosis and stress ulcer prophylaxis. 5. Decubitus precautions. 6. Incision care. 7. Routine laboratory values. 8. Discussed with patient in detail. All questions answered.
[2017-07-25] MEDS: Glimepiride 2 MG TAB PO SCH (17:35)
[2017-07-26] MEDS: Bisacodyl 5 MG TAB PO SCH ×2 (09:07→20:28)
[2017-07-26] MEDS: EMPAGLIFLOZIN 10 MG PO SCH (09:09)
[2017-07-26] MEDS: DICLOFENAC 75 MG PO SCH ×2 (09:09→17:34)
[2017-07-26] MEDS: Valsartan 80 MG TAB PO SCH (09:10)
[2017-07-26] MEDS: HYDROcodone/Acetaminophen 7.5/325 mg Tablet PO PRN ×3 (09:10→20:31)
[2017-07-26] MEDS: Milk Of Magnesia 30 ML UDCUP PO PRN (09:10)
[2017-07-26] MEDS: Gabapentin 300 MG CAP PO SCH ×2 (09:11→20:28)
[2017-07-26] MEDS: Multivitamin W/ Minerals 1 TAB PO SCH (09:11)
[2017-07-26] MEDS: Digoxin 0.125 MG TAB PO SCH (09:11)
[2017-07-26] MEDS: Clopidogrel Bisulfate 75 MG TAB PO SCH (09:11)
[2017-07-26] MEDS: Potassium Chloride 20 MEQ TAB PO SCH ×2 (09:11→20:27)
[2017-07-26] MEDS: TROSPIUM 20 MG TABLET PO SCH ×2 (09:11→20:27)
[2017-07-26] MEDS: Aspirin 81 mg Enteric Coated Tablet PO SCH (09:11)
[2017-07-26] MEDS: Fish Oil 1,000 MG CAP PO SCH (09:11)
[2017-07-26] MEDS: Furosemide 80 MG TAB PO SCH (09:11)
[2017-07-26] MEDS: Misoprostol 100 MCG TAB PO SCH ×2 (09:12→17:35)
--- NOTE | 2017-07-26 09:25 | PRG ---
DATE OF SERVICE: 07/26/2017 SUBJECTIVE: Ms. Sandoval is doing well. Denies any complaints, tolerating her therapy and her medic ations. Denies any chest pain or shortness of breath. No family at bedside. OBJECTIVE: VITAL SIGNS: She is afebrile, heart rate 58, respirations 16, oxygen saturation 98% on room air, blo od pressure 134/60. CARDIOVASCULAR: S1, S2 plus. RESPIRATORY: Normal vesicular breath sounds. ABDOMEN: Soft, nontender, bowel sounds heard in all quadrants. EXTREMITIES: Without cyanosis or clubbing. Left knee incision is healthy. CENTRAL NERVOUS SYSTEM: Improving deconditioning. LABORATORY VALUES: Blood sugars are 169, 150, 157 and 133. IMPRESSION: 1. Diabetes mellitus type 2, much better controlled. 2. Hypertension, well controlled. 3. Peripheral vascular disease. 4. Dyslipidemia. 5. Degenerative joint disease requiring left total knee replacement. 6. Improving deconditioning. PLAN: 1. Continue 1800 calorie heart healthy ADA diet. 2. Accu-Cheks with sliding scale coverage. 3. Deep venous thrombosis and stress ulcer prophylaxis. 4. Decubitus precautions. 5. Routine laboratory values. 6. Monitor blood pressure and cardiovascular status. 7. Discussed with patient in detail. All questions answered. 8. Continue physical therapy.
[2017-07-26] MEDS: Glimepiride 2 MG TAB PO SCH (17:35)
[2017-07-27 05:39] LABS: #Basophils 0.1 thou/uL (0.0-0.2); #Eosinphils 0.2 thou/uL (0.0-0.7); #Lymphocytes 1.7 thou/uL (1.20-3.40); #Monocytes 0.6 thou/uL (0.11-0.59); #Neutrophils 2.7 thou/uL (1.40-6.50); %Basophils 1.6 % (0.0-1.0); %Lymphocytes 31.9 % (21.0-51.0); %Monocytes 10.8 % (0.0-10.0); %Neutrophils 51.8 % (42.0-75.0); Hemoglobin 9.5 g/dL (12.0-16.0); Mean Corpuscular HGB CONC 30.9 g/dL (32.0-36.0); Mean Corpuscular Hemoglobin 27.9 pg (27.0-31.0); Mean Corpuscular Volume 90.2 fl (81.0-99.0); Mean Platelet Volume 7.4 fL (7.4-10.4); Platelet Count 285 thou/uL (130-400); RBC Distribution Width 15.3 % (11.5-14.5); Red Blood Cell (RBC) Count 3.41 mill/uL (4.20-5.40); White Blood Cell (WBC) Count 5.3 thou/uL (4.8-10.8)
[2017-07-27 05:53] LABS: Anion Gap 11 mmol/L (10-20); BUN (Urea Nitrogen) 14 mg/dL (9.8-20.1); Calc. Creatinine Clearance 102 mL/min (70-130); Calcium 8.6 mg/dL (7.8-10.44); Carbon Dioxide 26 mmol/L (23-31); Chloride 108 mmol/L (98-107); Estimated GFR-MDRD 78; Glucose 130 mg/dL (83-110); Potassium 4.4 mmol/L (3.5-5.1); Sodium 141 mmol/L (136-145)
[2017-07-27] MEDS: Misoprostol 100 MCG TAB PO SCH ×2 (08:40→16:37)
[2017-07-27] MEDS: Valsartan 80 MG TAB PO SCH (08:40)
[2017-07-27] MEDS: TROSPIUM 20 MG TABLET PO SCH ×2 (08:41→20:41)
[2017-07-27] MEDS: Clopidogrel Bisulfate 75 MG TAB PO SCH (08:41)
[2017-07-27] MEDS: Digoxin 0.125 MG TAB PO SCH (08:41)
[2017-07-27] MEDS: HYDROcodone/Acetaminophen 7.5/325 mg Tablet PO PRN ×2 (08:41→16:37)
[2017-07-27] MEDS: Potassium Chloride 20 MEQ TAB PO SCH ×2 (08:41→20:41)
[2017-07-27] MEDS: Multivitamin W/ Minerals 1 TAB PO SCH (08:41)
[2017-07-27] MEDS: Gabapentin 300 MG CAP PO SCH ×2 (08:41→20:41)
[2017-07-27] MEDS: Aspirin 81 mg Enteric Coated Tablet PO SCH (08:41)
[2017-07-27] MEDS: Fish Oil 1,000 MG CAP PO SCH (08:41)
[2017-07-27] MEDS: EMPAGLIFLOZIN 10 MG PO SCH (08:43)
[2017-07-27] MEDS: DICLOFENAC 75 MG PO SCH ×2 (08:43→16:36)
[2017-07-27] MEDS: Bisacodyl 5 MG TAB PO SCH ×2 (09:57→20:41)
[2017-07-27] MEDS: Furosemide 80 MG TAB PO SCH (09:57)
--- NOTE | 2017-07-27 13:10 | PRG ---
DATE OF SERVICE: 07/27/2017 SUBJECTIVE: Ms. Sandoval is doing well. Denies any complaints, resting comfortably, tolerating her therapy. No family at bedside. OBJECTIVE: VITAL SIGNS: She is afebrile, heart rate 69, respirations 16, oxygen saturation 98% on room air, blo od pressure 150/67. CARDIOVASCULAR: S1, S2 plus. RESPIRATORY: Normal vesicular breath sounds. ABDOMEN: Soft, nontender, bowel sounds heard in all quadrants. EXTREMITIES: Without cyanosis or clubbing. Left knee incision is healthy. LABORATORY VALUES: White count is 5.3, H&H is 9.5 and 30.7, sodium 141, potassium 4.4, BUN and creat inine is 14 and 0.87, blood sugars are 174, 155, 188 and 130. IMPRESSION: 1. Diabetes mellitus type 2, well controlled. 2. Hypertension. 3. Dyslipidemia. 4. Degenerative joint disease, status post left total knee replacement. PLAN: 1. Continue current medications. 2. 1800 calorie heart healthy ADA diet. 3. Incision care. 4. DVT and stress ulcer prophylaxis. 5. Decubitus precautions. 6. Routine laboratory values. 7. Physical therapy. 8. Accu-Cheks with sliding scale coverage. 9. Discussed with patient in detail. All questions answered.
[2017-07-27] MEDS: Glimepiride 2 MG TAB PO SCH (16:37)
[2017-07-28] MEDS: Bisacodyl 5 MG TAB PO SCH ×2 (08:12→21:10)
[2017-07-28] MEDS: Fish Oil 1,000 MG CAP PO SCH (08:12)
[2017-07-28] MEDS: Gabapentin 300 MG CAP PO SCH ×2 (08:12→21:10)
[2017-07-28] MEDS: Misoprostol 100 MCG TAB PO SCH ×2 (08:13→17:50)
[2017-07-28] MEDS: Multivitamin W/ Minerals 1 TAB PO SCH (08:14)
[2017-07-28] MEDS: Furosemide 80 MG TAB PO SCH (08:14)
[2017-07-28] MEDS: Potassium Chloride 20 MEQ TAB PO SCH ×2 (08:14→21:10)
[2017-07-28] MEDS: Valsartan 80 MG TAB PO SCH (08:14)
[2017-07-28] MEDS: TROSPIUM 20 MG TABLET PO SCH ×2 (08:14→21:10)
[2017-07-28] MEDS: Digoxin 0.125 MG TAB PO SCH (08:14)
[2017-07-28] MEDS: Aspirin 81 mg Enteric Coated Tablet PO SCH (08:14)
[2017-07-28] MEDS: Clopidogrel Bisulfate 75 MG TAB PO SCH (08:14)
[2017-07-28] MEDS: EMPAGLIFLOZIN 10 MG PO SCH ×2 (08:19→17:45)
[2017-07-28] MEDS: DICLOFENAC 75 MG PO SCH ×2 (08:20→17:45)
[2017-07-28] MEDS: HYDROcodone/Acetaminophen 7.5/325 mg Tablet PO PRN (13:13)
[2017-07-28] MEDS: Glimepiride 2 MG TAB PO SCH (17:45)
[2017-07-29] MEDS: HYDROcodone/Acetaminophen 7.5/325 mg Tablet PO PRN ×3 (00:22→23:11)
[2017-07-29] MEDS: Multivitamin W/ Minerals 1 TAB PO SCH (08:44)
[2017-07-29] MEDS: Gabapentin 300 MG CAP PO SCH ×2 (08:45→21:36)
[2017-07-29] MEDS: TROSPIUM 20 MG TABLET PO SCH ×2 (08:45→21:36)
[2017-07-29] MEDS: Clopidogrel Bisulfate 75 MG TAB PO SCH (08:45)
[2017-07-29] MEDS: Potassium Chloride 20 MEQ TAB PO SCH ×2 (08:47→21:36)
[2017-07-29] MEDS: Fish Oil 1,000 MG CAP PO SCH (08:47)
[2017-07-29] MEDS: Furosemide 80 MG TAB PO SCH (08:47)
[2017-07-29] MEDS: Bisacodyl 5 MG TAB PO SCH ×2 (08:48→21:36)
[2017-07-29] MEDS: Aspirin 81 mg Enteric Coated Tablet PO SCH (08:48)
[2017-07-29] MEDS: Valsartan 80 MG TAB PO SCH (08:49)
[2017-07-29] MEDS: Digoxin 0.125 MG TAB PO SCH (08:50)
[2017-07-29] MEDS: Misoprostol 100 MCG TAB PO SCH ×2 (08:53→17:43)
[2017-07-29] MEDS: DICLOFENAC 75 MG PO SCH ×2 (09:21→17:44)
[2017-07-29] MEDS: Mag-Al Plus 1200 MG/1200 MG/120 MG/30 ML UDCUP PO PRN ×2 (12:04→21:36)
[2017-07-29] MEDS: Glimepiride 2 MG TAB PO SCH (17:40)
--- NOTE | 2017-07-29 23:15 | PRG ---
DATE OF SERVICE: 07/29/2017 SUBJECTIVE: The patient is sitting in the chair, feels well, but states she has been unable to flex her knee to 90 degrees as requested. She has not been walking well because of pain. I advised her t hat she needed to take her pain medicine and do her therapy in order to improve and be able to get ba ck to her baseline status. OBJECTIVE: VITAL SIGNS: Blood pressure is 122/56, temperature is 98, pulse 63, respirations 17, O2 sats 97% on room air. LUNGS: Clear. CARDIAC: Showed regular rhythm. EXTREMITIES: Left knee is swollen, but with no erythema, warmth, or drainage. LABORATORY DATA: Shows Accu-Cheks stable from 97 to 192. ASSESSMENT: 1. Left total knee replacement with persistent decreased range of motion. 2. Type 2 diabetes, controlled to goal. 3. Hypertension, controlled to goal. PLAN: 1. Stressed the patient need to take pain medication prior to therapy and continue with physical the rapy. 2. Continue PT and OT. 3. Continue ADA diet and glimepiride for control of diabetes. 4. Continue DVT and stress ulcer prophylaxis.
[2017-07-30] MEDS: Fish Oil 1,000 MG CAP PO SCH (08:43)
[2017-07-30] MEDS: Multivitamin W/ Minerals 1 TAB PO SCH (08:43)
[2017-07-30] MEDS: Potassium Chloride 20 MEQ TAB PO SCH ×2 (08:43→21:07)
[2017-07-30] MEDS: TROSPIUM 20 MG TABLET PO SCH ×2 (08:44→21:04)
[2017-07-30] MEDS: HYDROcodone/Acetaminophen 7.5/325 mg Tablet PO PRN ×3 (08:44→21:02)
[2017-07-30] MEDS: Valsartan 80 MG TAB PO SCH (08:45)
[2017-07-30] MEDS: Digoxin 0.125 MG TAB PO SCH (08:46)
[2017-07-30] MEDS: Clopidogrel Bisulfate 75 MG TAB PO SCH (08:46)
[2017-07-30] MEDS: Aspirin 81 mg Enteric Coated Tablet PO SCH (08:46)
[2017-07-30] MEDS: Gabapentin 300 MG CAP PO SCH ×2 (08:46→21:04)
[2017-07-30] MEDS: Misoprostol 100 MCG TAB PO SCH ×2 (08:47→17:18)
[2017-07-30] MEDS: Furosemide 80 MG TAB PO SCH (08:47)
[2017-07-30] MEDS: DICLOFENAC 75 MG PO SCH ×2 (08:48→17:19)
[2017-07-30] MEDS: Bisacodyl 5 MG TAB PO SCH ×2 (08:48→21:04)
[2017-07-30] MEDS: EMPAGLIFLOZIN 10 MG PO SCH (08:50)
[2017-07-30] MEDS: Glimepiride 2 MG TAB PO SCH (17:18)
--- NOTE | 2017-07-30 19:12 | PRG ---
DATE OF SERVICE: 07/30/2017 SUBJECTIVE: The patient feels well, lying in bed with no pain, but is still not doing her therapy be cause of significant pain. OBJECTIVE: VITAL SIGNS: Her temperature is 97, pulse 67, respirations 17, O2 sat 98% on room air, blood pressur e 137/64. Accu-Cheks range from 89-158. LUNGS: Clear. CARDIAC: Shows regular rhythm. EXTREMITIES: Left knee shows minimal swelling, no erythema, warmth and only tenderness on flexion. ASSESSMENT: 1. Resolving left total knee. 2. Stable hypertension. 3. Type 2 diabetes, controlled to goal. PLAN: 1. Stress need the patient to take pain medicine prior to therapy and continued with PT. Continue A DA diet and glimepiride for diabetes. 2. Continue DVT and stress ulcer prophylaxis. 3. Continue diltiazem and valsartan for blood pressure control.
[2017-07-31] MEDS: Bisacodyl 5 MG TAB PO SCH ×2 (09:32→20:39)
[2017-07-31] MEDS: DICLOFENAC 75 MG PO SCH ×2 (09:34→18:34)
[2017-07-31] MEDS: Furosemide 80 MG TAB PO SCH (09:34)
[2017-07-31] MEDS: Fish Oil 1,000 MG CAP PO SCH (09:35)
[2017-07-31] MEDS: TROSPIUM 20 MG TABLET PO SCH ×2 (09:35→20:39)
[2017-07-31] MEDS: Aspirin 81 mg Enteric Coated Tablet PO SCH (09:35)
[2017-07-31] MEDS: Clopidogrel Bisulfate 75 MG TAB PO SCH (09:35)
[2017-07-31] MEDS: Misoprostol 100 MCG TAB PO SCH ×2 (09:35→18:33)
[2017-07-31] MEDS: Potassium Chloride 20 MEQ TAB PO SCH ×2 (09:35→20:40)
[2017-07-31] MEDS: Multivitamin W/ Minerals 1 TAB PO SCH (09:35)
[2017-07-31] MEDS: Gabapentin 300 MG CAP PO SCH ×2 (09:35→20:40)
[2017-07-31] MEDS: Digoxin 0.125 MG TAB PO SCH (09:35)
[2017-07-31] MEDS: Valsartan 80 MG TAB PO SCH (09:36)
[2017-07-31] MEDS: HYDROcodone/Acetaminophen 7.5/325 mg Tablet PO PRN ×2 (09:36→18:33)
[2017-07-31] MEDS: EMPAGLIFLOZIN 10 MG PO SCH (09:37)
[2017-07-31] MEDS ORDERED: Furosemide 80 MG TAB PO SCH (18:00)
[2017-07-31] MEDS: Glimepiride 2 MG TAB PO SCH (18:33)
--- NOTE | 2017-07-31 19:14 | PRG ---
DATE OF SERVICE: 07/31/2017 SUBJECTIVE: The patient feels well, walking well with therapy with decreasing pain, increasing range of motion of the knee, but is complaining of increased edema in her ankles with no shortness of keshawn th or orthopnea. OBJECTIVE: VITAL SIGNS: Temperature is 96, pulse 56, respirations 16, blood pressures 149/68, O2 sats 98% on ro om air. SKIN AND EXTREMITIES: Do show 2+ edema. LUNGS: Clear. CARDIAC: Shows regular rhythm. ABDOMEN: Soft, nontender. MUSCULOSKELETAL: Shows a healing left total knee with minimal swelling and increased range of motion . LABORATORY DATA: Shows Accu-Cheks range from 87-194. Most recent creatinine is 0.874 four days ago. ASSESSMENT: 1. Resolving left total knee with increased range of motion, decreasing pain. 2. Stable hypertension. 3. Stable type 2 diabetes. 4. Increased edema most likely due to fluid retention. PLAN: 1. Continue 80 mg of furosemide daily, but give extra dose 80 mg tonight. 2. Check BNP, BMP in the a.m. 3. Continue PT, OT. 4. Continue to monitor blood pressure and diabetic control.
[2017-07-31] MEDS: Mag-Al Plus 1200 MG/1200 MG/120 MG/30 ML UDCUP PO PRN (22:47)
[2017-08-01 05:43] LABS: Anion Gap 13 mmol/L (10-20); BUN (Urea Nitrogen) 14 mg/dL (9.8-20.1); Calc. Creatinine Clearance 111 mL/min (70-130); Calcium 8.6 mg/dL (7.8-10.44); Carbon Dioxide 27 mmol/L (23-31); Chloride 106 mmol/L (98-107); Estimated GFR-MDRD 86; Glucose 119 mg/dL (83-110); Potassium 3.9 mmol/L (3.5-5.1); Sodium 142 mmol/L (136-145)
[2017-08-01] MEDS: Misoprostol 100 MCG TAB PO SCH ×2 (09:00→17:52)
[2017-08-01] MEDS: Potassium Chloride 20 MEQ TAB PO SCH ×2 (09:00→20:43)
[2017-08-01] MEDS: DICLOFENAC 75 MG PO SCH ×2 (09:00→17:52)
[2017-08-01] MEDS: Bisacodyl 5 MG TAB PO SCH ×2 (09:00→20:43)
[2017-08-01] MEDS: HYDROcodone/Acetaminophen 7.5/325 mg Tablet PO PRN ×2 (09:03→20:42)
[2017-08-01] MEDS: TROSPIUM 20 MG TABLET PO SCH ×2 (09:08→20:42)
[2017-08-01] MEDS: Clopidogrel Bisulfate 75 MG TAB PO SCH (09:09)
[2017-08-01] MEDS: Furosemide 80 MG TAB PO SCH (09:10)
[2017-08-01] MEDS: Multivitamin W/ Minerals 1 TAB PO SCH (09:10)
[2017-08-01] MEDS: Digoxin 0.125 MG TAB PO SCH (09:11)
[2017-08-01] MEDS: Gabapentin 300 MG CAP PO SCH ×2 (09:11→20:42)
[2017-08-01] MEDS: Fish Oil 1,000 MG CAP PO SCH (09:12)
[2017-08-01] MEDS: Valsartan 80 MG TAB PO SCH (09:17)
[2017-08-01] MEDS: Aspirin 81 mg Enteric Coated Tablet PO SCH (09:17)
[2017-08-01] MEDS: EMPAGLIFLOZIN 10 MG PO SCH (09:25)
--- NOTE | 2017-08-01 13:28 | PRG ---
DATE OF SERVICE: 08/01/2017 SUBJECTIVE: Ms. Sandoval is doing well. Denies any complaints, resting comfortably, tolerating her therapy. No family at bedside. OBJECTIVE: VITAL SIGNS: She is afebrile, heart rate is 59, respirations 16, oxygen saturation 97% on room air, blood pressure 139/66. CARDIOVASCULAR: S1, S2 plus. RESPIRATORY: Normal breath sounds heard in all lung east. ABDOMEN: Soft, nontender, bowel sounds heard in all quadrants. EXTREMITIES: Without cyanosis or clubbing. Peripheral pulses are palpable. CENTRAL NERVOUS SYSTEM: Improving deconditioning. LABORATORY VALUES: Sodium 142, potassium 3.9, BUN and creatinine is 14 and 0.8. Blood sugars are 19 4, 165, 119 and 152. IMPRESSION: 1. Status post left total knee replacement. 2. Diabetes mellitus type 2. 3. Hypertension. 4. Dyslipidemia. 5. Peripheral vascular disease. 6. Improving deconditioning. PLAN: 1. Continue current medications. 2. 1800 calorie heart healthy ADA diet. 3. Accu-Cheks with sliding scale coverage. 4. Deep venous thrombosis and stress ulcer prophylaxis. 5. Decubitus precautions. 6. Routine laboratory values. 7. Discharge to home once stable from the therapy standpoint.
[2017-08-01] MEDS: Glimepiride 2 MG TAB PO SCH (16:38)
[2017-08-02] MEDS: Bisacodyl 5 MG TAB PO SCH ×2 (08:30→20:21)
[2017-08-02] MEDS: TROSPIUM 20 MG TABLET PO SCH ×2 (08:42→20:20)
[2017-08-02] MEDS: EMPAGLIFLOZIN 10 MG PO SCH (08:42)
[2017-08-02] MEDS: Multivitamin W/ Minerals 1 TAB PO SCH (08:42)
[2017-08-02] MEDS: Valsartan 80 MG TAB PO SCH (08:42)
[2017-08-02] MEDS: Gabapentin 300 MG CAP PO SCH ×2 (08:42→20:21)
[2017-08-02] MEDS: Furosemide 80 MG TAB PO SCH (08:42)
[2017-08-02] MEDS: HYDROcodone/Acetaminophen 7.5/325 mg Tablet PO PRN ×3 (08:43→23:09)
[2017-08-02] MEDS: Aspirin 81 mg Enteric Coated Tablet PO SCH (08:43)
[2017-08-02] MEDS: Clopidogrel Bisulfate 75 MG TAB PO SCH (08:43)
[2017-08-02] MEDS: Misoprostol 100 MCG TAB PO SCH ×2 (08:43→17:30)
[2017-08-02] MEDS: Potassium Chloride 20 MEQ TAB PO SCH ×2 (08:43→20:21)
[2017-08-02] MEDS: Fish Oil 1,000 MG CAP PO SCH (08:43)
[2017-08-02] MEDS: DICLOFENAC 75 MG PO SCH ×2 (08:44→17:31)
[2017-08-02] MEDS: Digoxin 0.125 MG TAB PO SCH (08:44)
--- NOTE | 2017-08-02 13:51 | PRG ---
DATE OF SERVICE: 08/02/2017 SUBJECTIVE: Ms. Sandoval is doing well. Denies any complaints, resting comfortably. She has been c leared for discharge tomorrow. OBJECTIVE: VITAL SIGNS: She is afebrile, heart rate 62, respirations 17, oxygen saturation 98% on room air, blo od pressure 156/67. CARDIOVASCULAR SYSTEM: S1, S2 plus. RESPIRATORY SYSTEM: Normal vesicular breath sounds. ABDOMEN: Soft, nontender, bowel sounds heard in all quadrants. EXTREMITIES: Without cyanosis or clubbing. Left knee incision is healthy. IMPRESSION: 1. Degenerative joint disease, status post left total knee replacement. 2. Hypertension, reasonable control. 3. Diabetes mellitus type 2, well controlled. Blood sugars are 152, 131, 199, 87 and 142. 4. Dyslipidemia. 5. Improving deconditioning. PLAN: 1. Continue current medications. 2. Discharge planning. 3. 1800-calorie heart healthy ADA diet. 4. Advised patient to get another pain medication prescription from her orthopedic surgeon as the cu rrent one probably is not valid since it is more than 7 days from the day it was written. I will sen d in her glimepiride prescription to [facility] and discharge tomorrow. Outpatient followup with primary care physician, Dr. Cruz in 7-10 days and her orthopedic surgeon in 2 weeks.
[2017-08-02] MEDS: Glimepiride 2 MG TAB PO SCH (17:30)
[2017-08-03 08:11] VITALS: BP 144/63; TEMP 97.5
[2017-08-03] MEDS: DICLOFENAC 75 MG PO SCH (08:54)
[2017-08-03] MEDS: Clopidogrel Bisulfate 75 MG TAB PO SCH (08:55)
[2017-08-03] MEDS: Bisacodyl 5 MG TAB PO SCH (08:55)
[2017-08-03] MEDS: Valsartan 80 MG TAB PO SCH (08:56)
[2017-08-03] MEDS: Multivitamin W/ Minerals 1 TAB PO SCH (08:57)
[2017-08-03] MEDS: TROSPIUM 20 MG TABLET PO SCH (08:57)
[2017-08-03] MEDS: Furosemide 80 MG TAB PO SCH (08:57)
[2017-08-03] MEDS: Gabapentin 300 MG CAP PO SCH (08:57)
[2017-08-03] MEDS: Fish Oil 1,000 MG CAP PO SCH (08:57)
[2017-08-03] MEDS: Misoprostol 100 MCG TAB PO SCH (08:57)
[2017-08-03] MEDS: Potassium Chloride 20 MEQ TAB PO SCH (08:57)
[2017-08-03] MEDS: EMPAGLIFLOZIN 10 MG PO SCH (08:58)
[2017-08-03] MEDS: Aspirin 81 mg Enteric Coated Tablet PO SCH (09:00)
[2017-08-03] MEDS: HYDROcodone/Acetaminophen 7.5/325 mg Tablet PO PRN (09:00)
[2017-08-03] MEDS: Digoxin 0.125 MG TAB PO SCH (09:01)
--- NOTE | 2017-08-03 13:33 | DIS ---
PRINCIPAL DIAGNOSES: 1. Degenerative joint disease, status post left total knee replacement. 2. Diabetes mellitus type 2. 3. Hypertension. 4. Dyslipidemia. 5. Peripheral vascular disease. 6. Overactive bladder. 7. Cardiac arrhythmia. 8. Peripheral neuropathy. COMPLICATIONS: None. ADVERSE REACTIONS: None. PROCEDURES: None. CONSULTATIONS: Physical therapy and occupational therapy. HOSPITAL COURSE: The [facility] undergoing tasha ctive left total knee replacement. She was admitted for therapy and was doing well. Her blood sugar s were running high and she stated that she does not like taking metformin. I spoke with her primary care physician, Dr. Cruz, who stated that they were going to try glimepiride so I started her on 2 mg daily, and then increased to 4 mg and since then her blood sugars mostly have been below 150. She has been slowly improving with therapy. Her laboratory values have remained stable. She has олег ched maximum medical improvement and was deemed stable for discharge from the therapy standpoint on 0 08/03/2017. She did get a prescription for her hydrocodone from Dr. Bergeron, but she did not fill i t and since it was more than 7 days the prescription is void. I advised her that I will give her a p rescription for hydrocodone until she can follow up with her PCP and her orthopedic surgeon. Her sta ples were removed. She had a followup with her surgeon. She denies any concerns or questions. Home health has been arranged. She will follow up with her primary care physician and her orthopedic bria geon in 7-10 days. She will call me with any questions or concerns. PHYSICAL EXAMINATION: VITAL SIGNS: On the day of discharge, she is afebrile, heart rate is 70, respirations 18, oxygen sat uration 99% on room air, blood pressure 144/63. CARDIOVASCULAR: S1, S2 plus. RESPIRATORY: Normal vesicular breath sounds. ABDOMEN: Soft, nontender, bowel sounds heard in all quadrants. EXTREMITIES: Without cyanosis or clubbing. Left knee incision is healthy. CENTRAL NERVOUS SYSTEM: Improving deconditioning. DISCHARGE MEDICATIONS: 1. Tylenol 500 mg p.o. q.6h. p.r.n. fever or headache. 2. [place] 7.5/325 one tablet p.o. q.6h. p.r.n. 3. Aspirin 81 mg daily. 4. Dulcolax 10 mg p.o. b.i.d. p.r.n. 5. Plavix 75 mg daily. 6. Digoxin 0.125 mg daily. 7. Cardizem-CD 180 mg daily. 8. Lasix 80 mg daily. 9. Gabapentin 300 mg b.i.d. 10. Amaryl 4 mg daily. 11. She is also on Arthrotec 1 tablet b.i.d. 12. Protonix 40 mg daily. 13. Jardiance 10 mg daily. 14. Potassium 20 mEq b.i.d. 15. Trospium 20 mg b.i.d. 16. Valsartan 320 mg daily. DIET: She is to follow an 1800 calorie heart healthy ADA diet. ACTIVITY: As tolerated with orthopedic precautions. She is to call us with any questions or concerns. As stated, she is to follow up with her PCP and he r orthopedic surgeon in 7-10 days. Prescription for her Amaryl has been sent to [facility] and a triplicate prescription for her hydrocodone has been given to the patient in person. Total time spent on this discharge 35 minutes.
== END 2017-08-03 13:45 | disposition home health service (06) | DRG 561 ==
LOC: NAV ACUTE 13:23
PROVIDERS: ADMIT Internal Medicine; ATTEND Internal Medicine
DX: Z47.1 Aftercare following joint replacement surgery (principal); Z96.652 Presence of left artificial knee joint; E11.42 Type 2 diabetes mellitus with diabetic polyneuropathy; E11.65 Type 2 diabetes mellitus with hyperglycemia; Z79.4 Long term (current) use of insulin; E78.5 Hyperlipidemia, unspecified; N32.81 Overactive bladder; F17.210 Nicotine dependence, cigarettes, uncomplicated; E66.3 Overweight; Z68.34 Body mass index [BMI] 34.0-34.9, adult; M17.12 Unilateral primary osteoarthritis, left knee; Z95.5 Presence of coronary angioplasty implant and graft; I10 Essential (primary) hypertension; I49.9 Cardiac arrhythmia, unspecified; Z79.84 Long term (current) use of oral hypoglycemic drugs
CPT/HCPCS: 36415; 36416; 80048; 83036; 83880; 85025; G8978-GP-CK; G8979-GP-CI

== ENCOUNTER 2018-04-17 09:15 | Emergency (ER) | payer MEDICARE | END 2018-04-17 09:59 | disposition home or self-care (01) | LOC: NAV ERS 09:15 | DX: M54.41 Lumbago with sciatica, right side (principal); I25.10 Atherosclerotic heart disease of native coronary artery without angina pectoris; E11.9 Type 2 diabetes mellitus without complications; K21.9 Gastro-esophageal reflux disease without esophagitis; I10 Essential (primary) hypertension; F17.210 Nicotine dependence, cigarettes, uncomplicated; Z79.899 Other long term (current) drug therapy; Z79.82 Long term (current) use of aspirin | CPT/HCPCS: 99283 ==

== ENCOUNTER 2019-01-09 15:32 | Outpatient (CLI) | payer MEDICARE ==
--- NOTE | 2019-01-09 10:27 | ULT ---
US Abdominal History: Pain and fullness Comparison: None. Findings: Real-time grayscale and color evaluation of the abdomen was performed. Visualized portion of the aorta, pancreas, and IVC are unremarkable. Hepatic echotexture appears norm al. No mass. Liver measures 14.5 cm in length. Portal vein is patent with antegrade flow. The common bile duct measures 4.2 cm. Right kidney measures 9.2 x 3.9 x 5.4 cm with a interpolar 2.3 cm cyst. Gallbladder wall thickness is normal. No pericholecystic fluid. Sub-5 mm gallbladder polyp. Spleen measures 8.3 cm in length. The left kidney measures 12 x 5.1 x 4.6 cm without mass, hydronephrosis, or abnormal calcifications. Impression: Normal examination of the abdomen.
== END 2019-01-09 15:33 | disposition home or self-care (01) ==
LOC: NAV ULT 15:32
PROVIDERS: ATTEND Nurse Practitioner Family
DX: R10.31 Right lower quadrant pain (principal)
CPT/HCPCS: 93975

== ENCOUNTER 2022-06-29 12:28 | Outpatient (CLI) | payer MEDICARE | END 2022-06-29 12:29 | disposition home or self-care (01) | LOC: NAV LAB 12:28 → NAV RAD 12:29 | PROVIDERS: ATTEND Nurse Practitioner Family | DX: M19.041 Primary osteoarthritis, right hand (principal) ==

== ENCOUNTER 2024-02-07 11:47 | Outpatient (CLI) | payer MEDICARE | END 2024-02-07 11:48 | disposition home or self-care (01) | LOC: NAV RAD 11:47 | PROVIDERS: ATTEND Family Medicine | DX: R22.2 Localized swelling, mass and lump, trunk (principal); R26.2 Difficulty in walking, not elsewhere classified; M47.814 Spondylosis without myelopathy or radiculopathy, thoracic region; M51.369 Other intervertebral disc degeneration, lumbar region without mention of lumbar back pain or lower extremity pain | CPT/HCPCS: 72072; 72100 ==